=== PATIENT | male | born 1980 | race Caucasian/White ===

== ENCOUNTER 2017-11-18 17:18 | Inpatient (IN) | payer SELFPAY ==
[~2017-11-18] VITALS: Ht 152.4 cm; Wt 73.0 kg
[2017-11-18] MEDS ORDERED: SODIUM CHLORIDE 0.9% 1,000 ML IV ONE (17:49)
[2017-11-18 18:20] LABS: CLARITY URINE CLEAR (CLEAR); COLOR URINE YELLOW (YELLOW); KETONES URINE NEGATIVE (NEGATIVE); LEUKOCYTE ESTERASE URINE NEGATIVE (NEGATIVE); NITRITE URINE NEGATIVE (NEGATIVE); OCCULT BLOOD URINE NEGATIVE (NEGATIVE); PROTEIN URINE NEGATIVE (NEGATIVE); SPECIFIC GRAVITY URINE 1.003 (1.005-1.030); UROBILINOGEN URINE 0.2 E.U./dL (0.2-1.0)
[2017-11-18 18:29] LABS: *AMPHETAMINES SCREEN URINE NEGATIVE (NEGATIVE); *BARBITURATES SCREEN URINE NEGATIVE (NEGATIVE); *BENZODIAZEPINES SCREEN URINE PRESUMTIVE POSITIVE (NEGATIVE); *COCAINE SCREEN URINE NEGATIVE (NEGATIVE)
[2017-11-18 18:30] LABS: CANNABINOID URINE SCREEN NEGATIVE (NEGATIVE); METHADONE URINE SCREEN NEGATIVE (NEGATIVE); OPIATES URINE SCREEN NEGATIVE (NEGATIVE); PHENCYCLIDINE URINE SCREEN NEGATIVE (NEGATIVE)
[2017-11-18 18:52] LABS: CHLORIDE 109 mEq/L (98-107)
[2017-11-18 18:55] LABS: INR 1.1; PROTHROMBIN TIME 11.4 sec (9.1-11.1)
[2017-11-18 19:04] LABS: ETHANOL BLOOD 450 mg/dL
[2017-11-18 19:05] LABS: BASOPHILS % 1.4 % (0.0-2.0); EOSINOPHILS % 0.6 % (0.0-5.0); HEMOGLOBIN. 8.7 g/dL (14.0-18.0); LYMPHOCYTES % 47.8 % (20.0-50.0); MEAN CORPUSCULAR HEMOGLOBIN 19.7 pg (28.0-32.0); MEAN CORPUSCULAR VOLUME 63.5 fL (80.0-94.0); MEAN PLATELET VOLUME 8.6 fl (7.4-10.4); MONOCYTES % 7.4 % (2.0-8.0); NEUTROPHILS % 42.8 % (40.0-76.0); PLATELET 268 x1000/uL (130-400); RED BLOOD CELL COUNT 4.41 mill/uL (4.7-6.1); RED CELL DISTRIBUTION WIDTH 21.3 % (11.6-14.6)
[2017-11-18] MEDS ORDERED: SODIUM CHLORIDE 0.9% 1000ML BAG (SEPSIS BOLUS) IV ONE (19:15)
[2017-11-18 19:22] LABS: PLATELET ESTIMATE NORMAL
[2017-11-18 19:55] LABS: CARBAMAZEPINE < 0.5 ug/mL (4-12); PHENOBARBITAL < 2.1 ug/mL (15.0-40.0); VALPROIC ACID < 3.0 ug/mL (50-100)
[2017-11-18] MEDS ORDERED: PHENYTOIN SODIUM 1,000 MG in SODIUM CHLORIDE 0.9% 100 ML IV ONE (22:00)
[2017-11-18] MEDS ORDERED: DIPHENHYDRAMINE 50MG/ML VIAL IV PRN (22:15)
[2017-11-18] MEDS ORDERED: ONDANSETRON HCL 4MG/2ML VIAL IV PRN (22:15)
[2017-11-18] MEDS ORDERED: CLONIDINE 0.1MG TABLET PO PRN (22:15)
[2017-11-18] MEDS ORDERED: ACETAMINOPHEN 325MG TABLET PO PRN (22:15)
[2017-11-18] MEDS ORDERED: GUAIFENESIN 200MG/10ML SUGAR FREE UDC PO PRN (22:15)
[2017-11-18] MEDS ORDERED: LORAZEPAM 2MG/ML CPJ IV PRN (22:15)
[2017-11-18] MEDS ORDERED: MAGNESIUM/ALUMINUM HYDROXIDE/SIMETHICONE 30ML UDC PO PRN (22:15)
[2017-11-18] MEDS ORDERED: IPRATROPIUM/ALBUTEROL 0.5-3(2.5)MG/3ML NEB INH PRN (22:15)
[2017-11-18] MEDS ORDERED: DOCUSATE SODIUM 100MG CAPSULE PO PRN (22:15)
[2017-11-18] MEDS ORDERED: HYDROCODONE/ACETAMINOPHEN 10/325MG TABLET PO PRN (23:30)
[2017-11-18] MEDS ORDERED: HYDROMORPHONE HCL/PF 2MG/ML CPJ IV PRN (23:30)
[2017-11-18] MEDS ORDERED: NA PHOS,M-B/NA PHOS,DI-BA ENEMA 118ML PR PRN (23:30)
[2017-11-18 23:57] LABS: CHLORIDE 115 mEq/L (98-107)
[2017-11-19] VITALS (10 sets, daily range): BP systolic 98–134; BP diastolic 54–81
[2017-11-19] MEDS ORDERED: MVI, ADULT NO.1 10 ML, FOLIC ACID 1 MG, THIAMINE HCL 100 MG in SODIUM CHLORIDE 0.9% 1,0... IV SCH ×4 (04:00)
[2017-11-19 07:24] LABS: CHLORIDE 114 mEq/L (98-107)
[2017-11-19 07:33] LABS: BASOPHILS % 1.4 % (0.0-2.0); EOSINOPHILS % 1.4 % (0.0-5.0); HEMATOCRIT. 26.3 % (42.0-52.0); HEMOGLOBIN. 8.1 g/dL (14.0-18.0); LYMPHOCYTES % 52.8 % (20.0-50.0); MEAN CORPUSCULAR HEMOGLOBIN 19.8 pg (28.0-32.0); MEAN CORPUSCULAR VOLUME 64.1 fL (80.0-94.0); MEAN PLATELET VOLUME 8.6 fl (7.4-10.4); MONOCYTES % 10.2 % (2.0-8.0); NEUTROPHILS % 34.2 % (40.0-76.0); PLATELET 220 x1000/uL (130-400); RED CELL DISTRIBUTION WIDTH 20.9 % (11.6-14.6)
[2017-11-19 07:34] LABS: LDL CHOLESTEROL 97 mg/dL (5-100)
[2017-11-19 07:36] LABS: HDL CHOLESTEROL 49 mg/dL (40-59)
[2017-11-19] MEDS: ASPIRIN 81MG EC TABLET PO SCH (08:57)
[2017-11-20] VITALS: BP 118/72
[2017-11-20 04:00] VITALS: BP 122/74
[2017-11-20 07:36] LABS: BASOPHILS % 1.4 % (0.0-2.0); EOSINOPHILS % 2.9 % (0.0-5.0); HEMATOCRIT. 28.6 % (42.0-52.0); HEMOGLOBIN. 8.9 g/dL (14.0-18.0); LYMPHOCYTES % 31.2 % (20.0-50.0); MEAN CORPUSCULAR HEMOGLOBIN 19.6 pg (28.0-32.0); MEAN CORPUSCULAR VOLUME 63.2 fL (80.0-94.0); MEAN PLATELET VOLUME 7.2 fl (7.4-10.4); MONOCYTES % 11.8 % (2.0-8.0); NEUTROPHILS % 52.7 % (40.0-76.0); PLATELET 206 x1000/uL (130-400); RED BLOOD CELL COUNT 4.53 mill/uL (4.7-6.1); RED CELL DISTRIBUTION WIDTH 20.6 % (11.6-14.6)
[2017-11-20 07:48] LABS: CHLORIDE 101 mEq/L (98-107)
[2017-11-20 08:00] VITALS: BP 119/74
[2017-11-20] MEDS: ASPIRIN 81MG EC TABLET PO SCH (09:03)
[2017-11-20 12:00] VITALS: BP 129/78
[2017-11-20 15:10] VITALS: BP 129/78
== END 2017-11-20 15:40 | disposition home or self-care (01) | DRG 53 ==
LOC: ER 17:18 → 5WST 22:03 → EDBEDREQ 22:09 → ENRESERV 22:32
PROVIDERS: ADMIT Internal Medicine; ATTEND Internal Medicine
DX: G40.909 Epilepsy, unspecified, not intractable, without status epilepticus (principal); E86.0 Dehydration; F10.129 Alcohol abuse with intoxication, unspecified; I10 Essential (primary) hypertension
CPT/HCPCS: 36415; 70450; 71045; 80048; 80053; 80061; 80156; 80165; 80184; 80185; 80305; 81003; 83605; 84484; 85025; 85610; 87040; 93005; 96361; 96365; 96366; 96368; 99291; G0482; J1165; J3411; J3490; J7030; J7050; A4315

== ENCOUNTER 2017-11-23 12:18 | Emergency (ER) | payer MEDICAID ==
[~2017-11-23] VITALS: Ht 167.6 cm; Wt 67.0 kg
[2017-11-23] MEDS ORDERED: ONDANSETRON HCL 4MG/2ML INJ IV STA (12:49)
[2017-11-23] MEDS ORDERED: LORAZEPAM 2MG/ML CPJ IV STA (12:49)
[2017-11-23] MEDS ORDERED: SODIUM CHLORIDE 0.9% 1,000 ML IV ONE (12:49)
[2017-11-23] MEDS ORDERED: FOLIC ACID 1 MG, THIAMINE HCL 100 MG, MVI, ADULT NO.1 10 ML in DEXTROSE 5% WATER 1,000 ML IV ONE ×4 (13:00)
[2017-11-23 14:23] LABS: CHLORIDE 106 mEq/L (98-107)
[2017-11-23 14:32] LABS: AMMONIA 41 uMol/L (<32)
[2017-11-23 14:33] LABS: CREATINE KINASE 130 IU/L (39-308)
[2017-11-23 14:35] LABS: BASOPHILS % 1.2 % (0.0-2.0); EOSINOPHILS % 0.3 % (0.0-5.0); HEMATOCRIT. 29.8 % (42.0-52.0); HEMOGLOBIN. 9.1 g/dL (14.0-18.0); MEAN CORPUSCULAR HEMOGLOBIN 19.2 pg (28.0-32.0); MEAN CORPUSCULAR VOLUME 62.7 fL (80.0-94.0); MEAN PLATELET VOLUME 8.3 fl (7.4-10.4); MONOCYTES % 3.9 % (2.0-8.0); NEUTROPHILS % 59.6 % (40.0-76.0); PLATELET 315 x1000/uL (130-400); RED BLOOD CELL COUNT 4.75 mill/uL (4.7-6.1)
[2017-11-23 15:05] LABS: ETHANOL BLOOD 417 mg/dL
[2017-11-23 15:14] LABS: PLATELET ESTIMATE NORMAL
[2017-11-24 04:45] VITALS: BP 124/68
== END 2017-11-24 05:57 | disposition home or self-care (01) ==
LOC: ER 12:29
DX: T51.8X1A Toxic effect of other alcohols, accidental (unintentional), initial encounter (principal); G93.49 Other encephalopathy; R53.1 Weakness; I10 Essential (primary) hypertension; M25.562 Pain in left knee; M25.561 Pain in right knee; R56.9 Unspecified convulsions; Y92.89 Other specified places as the place of occurrence of the external cause
CPT/HCPCS: 36415; 80053; 80307; 80329; 82140; 82550; 84443; 84484; 85025; 93005; 96365; 96366; 96375; 99285; G0482; J2060; J2405; J3411; J3490; J7030; J7070